=== PATIENT | female | born 1975 | race African-American/Black ===

== ENCOUNTER 2025-05-18 11:23 | Emergency (ER) | payer MEDICAID, SELFPAY ==
[2025-05-18] VITALS (12 sets, daily range): BP systolic 135–164; BP diastolic 70–89; PULSE 71–103; RESP 12–20; TEMP 36.6–36.8; O2SAT 96–100; BMI 38.0
--- NOTE | ~2025-05-18 | CT_ITS ---
CLINICAL HISTORY: weakness, dizziness CT head without contrast Comparison: None provided Findings: No intra-axial mass, midline shift, hydrocephalus, or acute hemorrhage. No significant atrophy-like change or white matter disease. There is no sinus or mastoid fluid. The orbits are unremarkable. No skull fracture. IMPRESSION: 1. No acute intracranial findings. This document has been electronically signed by: Maggy Yates MD on 05/18/2025 13:47:19
--- NOTE | 2025-05-18 11:33 | ED.GENADULT ---
HPI - General Adult General Chief complaint: Dizziness Stated complaint: dizzy, weak Time Seen by Provider: 05/18/25 11:27 Source: patient, RN notes reviewed and old records reviewed Mode of arrival: ambulatory Limitations: no limitations History of Present Illness ED Provider: BHAVNA Ibarra HPI narrative: 49-year-old female with medical history of asthma, HIV on ART, anemia presents to the ED due to episode of dizzy and weakness. Patient states she woke up, ate breakfast and then laid back down to take a nap before work when she closed her eyes and instantly felt dizzy as if the room was upside down . Patient states this episode lasted approximately 5-10 seconds and was associated with palpitations and nausea that lasted approximately 5 minutes after the episode of dizziness resolved. Patient states she has a history of vertigo, and this episode felt exactly like her prior episodes without any changes. Denies fevers, chills,chest pain, shortness of breath, vomiting, abdominal pain, headache, visual changes, urinary symptoms MD complaint: Dizzy, weakness Related Data Previous Rx's ?Medication ?Instructions ?Recorded meclizine 25 mg tablet 25 mg PO TID PRN dizziness #14 tabs 05/19/25 Allergies Allergy/AdvReac Type Severity Reaction Status Date / Time No Known Allergies (No Known Allergy Verified 05/19/25 12:12 Allergies*) Review of Systems Review of Systems: Yes all other systems are reviewed and are negative PMFSH Past Medical History Attestation statement: The following information was validated with the patient. Source: old records reviewed and nursing notes reviewed Physical Exam ED Vital Signs: Vital Signs - 24 hr 05/18/25 11:32 05/18/25 11:37 05/18/25 12:52 Temperature 98.2 F 98.2 F Pulse Rate 83 83 83 Respiratory Rate 14 14 13 Blood Pressure 147/81 H 147/81 H 137/72 Pulse Oximetry 100 100 100 Oxygen Delivery Method Room Air Room Air Room Air 05/18/25 12:58 05/18/25 14:40 05/18/25 15:03 Temperature 97.8 F 97.8 F Pulse Rate 103 H 85 71 Respiratory Rate 20 15 12 Blood Pressure 164/89 H 146/76 H 139/71 Pulse Oximetry 100 97 Oxygen Delivery Method Room Air Room Air 05/18/25 15:04 05/18/25 16:10 05/18/25 17:15 Temperature 97.8 F 97.8 F Pulse Rate 76 78 77 Respiratory Rate 12 17 19 Blood Pressure 139/75 143/85 H 143/85 H Pulse Oximetry 99 Oxygen Delivery Method Room Air 05/18/25 19:17 05/18/25 19:18 05/18/25 19:18 Temperature 98 F Pulse Rate 79 82 76 Respiratory Rate 16 Blood Pressure 145/74 H 135/89 137/70 Pulse Oximetry 99 Oxygen Delivery Method Room Air 05/18/25 19:18 Temperature Pulse Rate 82 Respiratory Rate Blood Pressure 135/89 Pulse Oximetry Oxygen Delivery Method BMI result Body Mass Index 38.0 GENERAL APPEARANCE: ?AxOx4, generally well-appearing, no acute distress. HEENT: ?NC, AT. MMM. EOMI, clear conjunctiva, Mild conjunctival pallor, oropharynx clear. NECK: ?Supple without lymphadenopathy.? No stiffness or restricted ROM. HEART:? Normal rate and regular rhythm, normal S1/S1, no m/r/g LUNGS:? CTAB, moving air well. No crackles or wheezes are heard. ABDOMEN: ?Soft, nontender, nondistended with good bowel sounds heard. BACK: No CVAT, no obvious deformity. EXTREMITIES: ?Without cyanosis, clubbing or edema. NEUROLOGICAL: ?Grossly nonfocal. Alert and oriented, moving all 4 extremities. Observed to ambulate with normal gait. Skin: ?Warm and dry without any rash. Medications Administered Discontinued Medications Generic Name Dose Route Start Last Admin Trade Name Freq PRN Reason Stop Dose Admin Diazepam 5 mg 05/18/25 12:58 05/18/25 13:06 Diazepam 10 Mg/2 Ml Cartridge IVPUSH 05/18/25 12:59 5 mg STAT STA Administration Lactated Ringer's 1,000 mls @ 999 mls/hr 05/18/25 11:46 05/18/25 14:28 Lr IV 05/18/25 12:46 Infused .Q1H1M ONE Infusion Meclizine HCl 25 mg 05/18/25 11:46 05/18/25 11:54 Meclizine Hcl 25 Mg Tablet PO 05/18/25 11:47 25 mg ONCE ONE Administration Medical Decision Making Medical Decision Making MDM Narrative: 49-year-old female with medical history of asthma, HIV on ART, anemia presents to the ED due to episode of dizzy and weakness that started this morning after she woke up that lasted approximately 5-10 seconds with nausea and palpitations that lasted 5 mins after dizziness had resolved. Plan: labs, EKG - Medicated with 1L IV fluids, 25mg PO meclizine EKG reveals normal sinus rhythm, with T-wave inversion in 3 and V1 however this is nonspecific, no ST-elevation /depression, lengthened QT troponins x2 undetectable at <2.7 Labs without leukocytosis / leukopenia no left shift, microcytic anemia with a hemoglobin of 7.9, hematocrit of 28.0, no electrolyte abnormalities, beta hCG negative. Viral serology negative CT head/ brain negative for acute intracranial findings Course 14:15- Patient has had 3 episodes of dizziness while in the department after being medicated with 1L IV fluids and 25mg meclizine. I obtained CT head/brain to ensure this was not the source of her anemia. Patient is symptomatic today with dizziness today I believe her anemia may be the source of her symptoms. Patient will be transfused with 1 unit of red blood cells to correct anemia. 19:48- Patient was transfused with 1 unit red blood cells and handled procedure well. Patient is now up and ambulating to the bathroom with dizziness resolved. No other episodes of dizziness while in the department. Orthostatic vital signs negative, patient asymptomatic, Patient has tolerated PO and symptoms have improved significantly. VS stable with BP 135/89, pulse rate of 82, respiratory rate of 16, afebrile with oral temp of 98?, O2 saturation 99% on room air. I counseled patient to follow up with her primary care doctor to ensure resolution of her symptoms and management of anemia. Patient feels well to go home for self care. Patient is in agreement with the plan. Differential Diagnosis Differential Diagnoses: The differential diagnosis associated with the presentation includes ICH ACS Dysrhythmia Electrolyte abnormality Anemia Admission/Observation Consideration of admission/observation: Escalation of care including admission/observation considered Lab Data MDM Lab Attestation statement: I reviewed the patient's lab results. 05/18/25 11:59 05/18/25 11:59 Labs: Lab Results 05/18/25 05/18/25 05/18/25 Range/Units 11:59 13:01 13:12 WBC 9.4 (4.8-10.8) X10*3/uL RBC 4.75 (4.20-5.50) X10*6/uL Hgb 7.9 L (12.0-16.0) g/dl Hct 28.0 L (37.0-47.0) % MCV 58.9 L (80.0-98.0) fL MCH 16.6 L (27.0-33.0) pg MCHC 28.2 L (31.0-35.0) g/dl RDW 18.8 H (11.0-16.0) % Plt Count 387 (160-400) X10*3/uL MPV 9.7 (9.4-12.3) fL Immature Gran % (Auto) 0.4 (0.0-0.4) % Neut % (Auto) 58.8 (45-73) % Lymph % (Auto) 27.7 (20-40) % [place] % (Auto) 6.0 (2-11) % Eos % (Auto) 6.4 H (0-4) % Baso % (Auto) 0.7 (0-2) % Lymph # (Auto) 2.6 (1.2-4.9) X10*3/uL [place] # (Auto) 0.6 (0.1-1.2) X10*3/uL Eos # (Auto) 0.6 H (0.0-0.4) X10*3/uL Baso # (Auto) 0.1 (0.0-0.2) X10*3/uL Abs Immat Gran (auto) 0.04 H (0.00-0.03) X10*3/uL Absolute Neuts (auto) 5.5 (2.0-8.3) x10*3/uL Absolute Nucleated RBC 0.000 (0.0-0.012) X10*3/uL Nucleated RBC % (auto) 0.0 (0.0-0.2) /100WBC Smear Tech's Comments VERIFIED Smear Path Review SEE NOTE Sodium 139 (135-145) mmol/L Potassium 3.8 (3.3-5.1) mmol/L Chloride 110 H (96-108) mmol/L Carbon Dioxide 21 L (22-29) mmol/L Anion Gap 12 (12-20) BUN 15 (9-16) mg/dL Creatinine 0.88 (0.5-1.4) mg/dL Estim Creat Clear Calc 91.0 Estimated GFR > 60 Random Glucose 100 (60-115) mg/dL Calcium 9.1 (8.4-10.2) mg/dL Magnesium 1.9 (1.6-2.6) mg/dL Total Bilirubin 0.3 (0.0-1.0) mg/dL AST 16 (5-31) U/L ALT 15 (0-31) U/L Alkaline Phosphatase 61 (39-117) U/L Troponin I High Sens < 2.7 (<3.5-17.0) ng/L Total Protein 7.9 (6.5-8.0) g/dL Albumin 4.4 (3.5-5.0) g/dL Beta HCG, Quant < 2 mIU/mL Influenza Type A (PCR) NEGATIVE (Negative) Influenza Type B (PCR) NEGATIVE (Negative) RSV RNA Qual (PCR) NEGATIVE (Negative) SARS-CoV-2 RNA (RT-PCR) NEGATIVE (Negative) Blood Type B Positive Antibody Screen NEGATIVE Crossmatch See Detail 05/18/25 Range/Units 13:56 WBC (4.8-10.8) X10*3/uL RBC (4.20-5.50) X10*6/uL Hgb (12.0-16.0) g/dl Hct (37.0-47.0) % MCV (80.0-98.0) fL MCH (27.0-33.0) pg MCHC (31.0-35.0) g/dl RDW (11.0-16.0) % Plt Count (160-400) X10*3/uL MPV (9.4-12.3) fL Immature Gran % (Auto) (0.0-0.4) % Neut % (Auto) (45-73) % Lymph % (Auto) (20-40) % [place] % (Auto) (2-11) % Eos % (Auto) (0-4) % Baso % (Auto) (0-2) % Lymph # (Auto) (1.2-4.9) X10*3/uL [place] # (Auto) (0.1-1.2) X10*3/uL Eos # (Auto) (0.0-0.4) X10*3/uL Baso # (Auto) (0.0-0.2) X10*3/uL Abs Immat Gran (auto) (0.00-0.03) X10*3/uL Absolute Neuts (auto) (2.0-8.3) x10*3/uL Absolute Nucleated RBC (0.0-0.012) X10*3/uL Nucleated RBC % (auto) (0.0-0.2) /100WBC Smear Tech's Comments Smear Path Review Sodium (135-145) mmol/L Potassium (3.3-5.1) mmol/L Chloride (96-108) mmol/L Carbon Dioxide (22-29) mmol/L Anion Gap (12-20) BUN (9-16) mg/dL Creatinine (0.5-1.4) mg/dL Estim Creat Clear Calc Estimated GFR Random Glucose (60-115) mg/dL Calcium (8.4-10.2) mg/dL Magnesium (1.6-2.6) mg/dL Total Bilirubin (0.0-1.0) mg/dL AST (5-31) U/L ALT (0-31) U/L Alkaline Phosphatase (39-117) U/L Troponin I High Sens < 2.7 (<3.5-17.0) ng/L Total Protein (6.5-8.0) g/dL Albumin (3.5-5.0) g/dL Beta HCG, Quant mIU/mL Influenza Type A (PCR) (Negative) Influenza Type B (PCR) (Negative) RSV RNA Qual (PCR) (Negative) SARS-CoV-2 RNA (RT-PCR) (Negative) Blood Type Antibody Screen Crossmatch Independent Interpretation I performed an independent interpretation of an: EKG and CT Scan Interpretation: I personally interpreted the EKG which reveals normal sinus rhythm with T-wave inversions in leads 3 and V1 however this is nonspecific, no ST-elevation / depression, lengthened QT Vent. Rate : 76 BPM Atrial Rate : 76 BPM P-R Int : 124 ms QRS Dur : 84 ms QT Int : 384 ms P-R-T Axes : -1 20 10 degrees QTcB Int : 432 ms Normal sinus rhythm Nonspecific T wave abnormality Abnormal ECG No previous ECGs available I personally interpreted the CT head / brain which was negative for acute intracranial abnormalities, I agree with the radiologist's interpretation Radiology Impression Discussion of test interpretation with radiology: I have reviewed the radiologist's reading. Radiologist Impression: CT head/brain Findings: No intra-axial mass, midline shift, hydrocephalus, or acute hemorrhage. No significant atrophy-like change or white matter disease. There is no sinus or mastoid fluid. The orbits are unremarkable. No skull fracture. IMPRESSION: 1. No acute intracranial findings. This document has been electronically signed by: Maggy Yates MD on 05/18/2025 13:47:19 Dictated By: Maggy Yates MD Signed By: <Electronically signed by Maggy Yates MD in OV> 05/18/25 [id number] External Record Review External record reviewed: Inpatient record, Office record and Outpatient record Chronic Conditions Patient?s care impacted by: Other (HIV on ART, anemia, asthma ) Discharge Plan Discharge Clinical Impression: Anemia Patient Disposition: Home, Self-Care Instructions: Anemia (ED) Additional Instructions: You were evaluated in the emergency department for dizziness. Your lab work showed a significant anemia with a hemoglobin of 7.9. You were given 1 unit of red blood cells while in the department and tolerated the procedure well. The CT of your head/brain was normal. Please follow up with your primary care doctor to ensure resolution of your symptoms, and management of your anemia. Please return to the emergency department if you experience fevers over 100.4?, chest pain, shortness of breath, nausea, vomiting, abdominal pain, increased dizziness, headaches, visual changes or any new/worsening/concerning symptoms. Prescriptions: No Action meclizine 25 mg tablet 25 mg PO TID PRN (Reason: dizziness) Qty: 14 0RF Stand Alone Forms: Work/School Release Interventions: ED Discharge Assessment Last Done: 05/18/25 20:07 Discharge Date/Time: 05/18/25 20:13 Print Language: Azeri
--- NOTE | 2025-05-18 11:45 | ECG_ITS ---
Test Reason : DIZINESS Blood Pressure : */* mmHG Vent. Rate : 76 BPM Atrial Rate : 76 BPM P-R Int : 124 ms QRS Dur : 84 ms QT Int : 384 ms P-R-T Axes : -1 20 10 degrees QTcB Int : 432 ms Normal sinus rhythm Nonspecific T wave abnormality Abnormal ECG No previous ECGs available Referred By: Madeline Ibarra Electronically Signed By: HENRY GIBBS
[2025-05-18] MEDS: Lactated Ringers 1,000 ML 999 ML IV (11:54)
--- OUTSIDE RECORDS SUMMARY | 2025-05-18 11:54 | XMS_ITS | Clinical Summary ---
Author Organization [facility] Address [address] [place] [address] Care Team Providers Care French Weaver Name Role Phone Unknown Primary Care Provider [phone] Allergies No known active allergies Social History Tobacco Use Types Packs/Day Years Used Date Smoking Tobacco: Never Assessed Comments Unknown Sex and Gender Information Value Date Recorded Sex Assigned at Not on file Legal Sex Female 7:27 AM EST Gender Identity Not on file Sexual Orientation Not on file Last Filed Vital Signs Vital Sign Reading Time Taken Comments Blood Pressure 133/79 08/26/2019 9:14 AM EST Pulse 90 08/26/2019 9:14 AM EST Temperature 36.7 C (98.1 F) 08/26/2019 7:32 AM EST Respiratory Rate 18 08/26/2019 9:14 AM EST Oxygen Saturation 98% 08/26/2019 9:14 AM EST Inhaled Oxygen Concentration - - Weight - - Height - - Body Mass Index - - Plan of Treatment Health Maintenance Due Date Last Done Comments Hepatitis C Virus Screening 1977 HIV Screening 1990 DTaP/Tdap/Td Vaccines (1 - Tdap) 1996 Hepatitis B Vaccines (1 of 3 - 19+ 3-dose series) 1996 Pap Smear (Ages 21-65) 1998 Mammogram 2017 Colonoscopy 2022 Influenza Vaccine 01/25/2025 COVID-19 Vaccine ( - 2023-2 5 season) 2025 Pneumococcal Vaccine: Pediat jane (0-5 Years) and At-Risk Patients (6 to 49 Years) Aged Out No longer eligible b ased on patient's age to complete this topic Insurance [address] [place] [id number] [facility] [place] [employer] (AUTO/LIABILITY) [place] [address] Care Teams French Weaver Relationship Specialty Start Date End Date Unknown Unknow Provider Address PCP - General 08/26/19
[2025-05-18 12:12] LABS: Hematocrit 28.0 % (37.0-47.0); Hemoglobin 7.9 g/dl (12.0-16.0); Imm Gran Abs Auto 0.04 X10*3/uL (0.00-0.03); Imm Gran Pct Auto 0.4 % (0.0-0.4); Lymphocytes Absolute Auto 2.6 X10*3/uL (1.2-4.9); MANUAL DIFF FLAG SCAN; Mean Corpuscular HGB Conc 28.2 g/dl (31.0-35.0); Mean Corpuscular Hemoglobin 16.6 pg (27.0-33.0); Mean Corpuscular Volume 58.9 fL (80.0-98.0); NRBC Abs Auto 0.000 X10*3/uL (0.0-0.012); NRBC Pct Auto 0.0 /100WBC (0.0-0.2); PLT ABN DIST 1; Red Blood Count 4.75 X10*6/uL (4.20-5.50); SCAN SMEAR FLAG 1
[2025-05-18 12:13] LABS: White Blood Count 9.4 X10*3/uL (4.8-10.8)
[2025-05-18 12:20] LABS: Alanine Aminotransferase 15 U/L (0-31); Albumin Level 4.4 g/dL (3.5-5.0); Alkaline Phosphatase 61 U/L (39-117); Anion Gap 12 (12-20); Aspartate Amino Transferase 16 U/L (5-31); Blood Urea Nitrogen 15 mg/dL (9-16); Calcium 9.1 mg/dL (8.4-10.2); Carbon Dioxide 21 mmol/L (22-29); Chloride 110 mmol/L (96-108); Creatinine Clr Calc Pharmacy 91.0; Estimated Glomerular Filt Rate > 60; Magnesium 1.9 mg/dL (1.6-2.6); Potassium 3.8 mmol/L (3.3-5.1); Sodium 139 mmol/L (135-145); Total Protein 7.9 g/dL (6.5-8.0)
[2025-05-18 12:27] LABS: Platelet Count 387 X10*3/uL (160-400)
[2025-05-18] MEDS: diazePAM 10 MG/2 ML CARTRIDGE 5 MG IVPUSH (13:06)
[2025-05-18 13:40] LABS: Troponin-I High Sensitivity < 2.7 ng/L (<3.5-17.0)
[2025-05-18 13:47] LABS: Resp Syncy Virus RNA Qual PCR NEGATIVE (Negative); SARS COV2 PCR INHOUSE NEGATIVE (Negative)
[2025-05-18 14:22] LABS: Troponin-I High Sensitivity < 2.7 ng/L (<3.5-17.0)
--- NOTE | 2025-05-18 17:11 | PC.NURSE ---
Patient present c/o of dizziness Patient went to take a nap and when laying down felt the room spinning Patient had hx of this 1 year prior Patient was found to be anemic IV 20 G in R forearm Administered 1 pack RBC with no reactions Head CT = no acute findings VSS and up to date
== END 2025-05-18 20:13 | disposition home or self-care (01) ==
PROVIDERS: Emergency Provider Emergency Medicine Emergency Medical Services; PCP Internal Medicine
DX: D64.9 Anemia, unspecified (principal); Z21 Asymptomatic human immunodeficiency virus [HIV] infection status; Z79.899 Other long term (current) drug therapy
CPT/HCPCS: 36415; 36430; 70450; 80053; 83735; 84484; 84702; 85025; 86850; 86900; 86901; 86923; 87637; 93005; 96361; 96374; 99285; J3360; J7120; P9016

== ENCOUNTER → 2025-05-18 11:45 | Outpatient (BNV) | payer MEDICAID, SELFPAY | PROVIDERS: Emergency Provider Emergency Medicine Emergency Medical Services; PCP Internal Medicine; Visit Provider Internal Medicine | DX: R94.31 Abnormal electrocardiogram [ECG] [EKG] (principal); R42 Dizziness and giddiness | CPT/HCPCS: 93010 ==

== ENCOUNTER → 2025-05-18 12:49 | Outpatient (BNV) | payer MEDICAID, SELFPAY | PROVIDERS: Emergency Provider Emergency Medicine Emergency Medical Services; PCP Internal Medicine; Visit Provider Radiology Diagnostic Radiology | DX: R42 Dizziness and giddiness (principal); R53.1 Weakness | CPT/HCPCS: 70450 ==

== ENCOUNTER 2025-05-19 12:06 | Emergency (ER) | payer MEDICAID, SELFPAY ==
--- NOTE | ~2025-05-19 | XR_ITS ---
CLINICAL HISTORY: cough Single view of the chest. COMPARISON: None provided. FINDINGS: Borderline cardiomegaly. No consolidation. Gradient opacities along the lung bases likely representing overlying adipose/breast tissue. No pleural effusion or pneumothorax. No acute fracture. IMPRESSION: 1. No consolidation. This document has been electronically signed by: Uriel Kaba MD on 05/19/2025 16:03:50
[2025-05-19 12:12] VITALS: BP 153/90; PULSE 77; RESP 16; TEMP 36.1; O2SAT 97; BMI 38.6
--- NOTE | 2025-05-19 12:13 | ED_ITS ---
HPI - General Adult General Chief complaint: Dizziness Stated complaint: Dizziness Time Seen by Provider: 05/19/25 14:32 Source: patient, RN notes reviewed and old records reviewed Mode of arrival: ambulatory History of Present Illness ED Provider: Katalina Alvarez PA-C HPI narrative: 49-year-old female with a past medical history of asthma, HIV on HAART, anemia, presenting to the ED complaining of intermittent room spinning dizziness elicited with position changes since this morning. Reports symptomatic improvement at present, denies dizziness now. Also reports mild headache and cough with chronic SOB. Patient was evaluated in our ED yesterday for similar symptoms of dizziness and anemia, was transfused 1 unit RBCs. States she is not discharged home on any medication. Reports history of vertigo a few years ago. Denies vision change/loss, nausea / vomiting, CP, focal weakness. Related Data Previous Rx's ?Medication ?Instructions ?Recorded meclizine 25 mg tablet 25 mg PO TID PRN dizziness # 14 tabs 05/19/25 Allergies Allergy/AdvReac Type Severity Reaction Status Date / Time No Known Allergies (No Known Allergy Verified 05/19/25 12:12 Allergies*) Review of Systems 2 Review of Systems: Yes all other systems are reviewed and are negative Constitutional: Constitutional: Reports as per HPI Neurologic: Denies Abnormal speech present [facility] Past Medical History Attestation statement: The following information was validated with the patient. Source: old records reviewed Physical Exam ED Vital Signs: Vital Signs - 24 hr 05/19/25 12:12 05/19/25 15:09 05/19/25 16:34 Temperature 96.9 F 98.3 F Pulse Rate 77 77 76 Respiratory Rate 16 16 16 Blood Pressure 153/90 H 152/91 H Pulse Oximetry 97 98 Oxygen Delivery Method Room Air Room Air 05/19/25 18:11 Temperature 98.4 F Pulse Rate 82 Respiratory Rate 18 Blood Pressure 137/78 Pulse Oximetry 98 Oxygen Delivery Method Room Air BMI result Body Mass Index 38.6 Const General: cooperative, healthy appearing, no acute distress, alert and awake Orientation/consciousness: patient oriented x3 Limitations: no limitations HENMT Head: Yes normal to inspection and Yes atraumatic Ears: hearing grossly normal bilaterally General nose exam: Normal external nose present Face and sinus: Yes normal facial exam Mouth: Normal oral and palatal mucosa present Throat: Yes posterior oropharynx normal Eyes General: appearance normal, both eyes and all related structures Pupils: Equal, round and reactive pupils present EOM: EOMs intact bilaterally and Nystagmus present Neck Neck: Yes normal visual inspection and Yes no meningeal signs Resp Effort & Inspection: normal respiratory effort and no respiratory distress Auscultation: wheezes expiratory wheezes and throughout Cardio Rate: regular rate Heart sounds: S1 normal heart sound present and S2 normal heart sound present Skin Rashes: no rashes Wounds: no wounds Neuro General: patient oriented x3, tone normal, moves all extremities, no meningeal signs, no focal motor deficits and CN's II-XI intact bilaterally Cranial nerves: Yes CN's II-XII intact bilaterally, Yes Equal, round and reactive pupils present, Yes Bilaterally intact EOM present and Yes Nystagmus present horizontal fast component to the left Cognition (Neuro): normal cognition Speech: No Abnormal speech present Gait exam (Neuro): Normal gait present Motor exam (neuro): 5/5 motor strength present throughout and no tremor noted Extrem General: Yes normal to inspection Course Course Course Narrative: Rapid medical examination performed in triage by Luba Harry PA-C: Patient is a 49 year old assigned female at presenting to the emergency department with dizziness / lightheadedness. Detailed physical exam and review of systems are deferred to the eap clinician. EKG, labs ordered. Patient placed back in the waiting room pending room availability and results. - anemic 8.7/30.9 improved from yesterday, was transfused 1 unit RBCs yesterday - labs otherwise reassuring -1640--during orthostatic vitals patient became dizzy with position changes. Will trial PO Ativan XR chest 1V IMPRESSION: 1. No consolidation. -1834--on re-evaluation patient was sleeping comfortably. Now she is awake and alert. Ambulating with steady gait. Reports symptomatic improvement. Denies dizziness at present. Lungs CTA. Feels safe for discharge home at this time Results discussed with patient including worrisome signs and symptoms and strict return precautions, and when to return to the emergency department. They verbalized understanding and feel safe for discharge at this time. Medications Administered Discontinued Medications Generic Name Dose Route Start Last Admin Trade Name Freq PRN Reason Stop Dose Admin Albuterol Sulfate 2.5 mg/ 0 mg 05/19/25 15:02 05/19/25 15:08 Albuterol/Ipratropium 3 ml INHALE 05/19/25 15:03 1 dose ONCE ONE Administration Diphenhydramine HCl 12.5 mg 05/19/25 14:53 05/19/25 15:10 Diphenhydramine Hcl 50 Mg/Ml Vial IVPUSH 05/19/25 14:54 12.5 mg ONCE ONE Administration Sodium Chloride 1,000 mls @ 999 mls/hr 05/19/25 15:00 05/19/25 16:49 Ns IV 05/19/25 16:00 Infused .Q1H1M REDDY Infusion Lorazepam 1 mg 05/19/25 16:35 05/19/25 16:46 Lorazepam 1 Mg Tablet PO 05/19/25 16:36 1 mg ONCE ONE Administration Meclizine HCl 25 mg 05/19/25 14:53 05/19/25 15:07 Meclizine Hcl 25 Mg Tablet PO 05/19/25 14:54 25 mg ONCE ONE Administration Medical Decision Making Medical Decision Making MDM Narrative: 49-year-old female with a past medical history of asthma, HIV on HAART, anemia, presenting to the ED complaining of intermittent room spinning dizziness elicited with position changes since this morning. On exam vital signs stable, NAD, nontoxic appearing, denies dizziness at present, diffuse expiratory wheeze noted. No focal deficits. Concern for BPPV. Rule out anemia. Lower suspicion for ICH, CVT, meningitis/ encephalitis. Concern for viral illness vs asthma exacerbation. Rule out pneumonia. Labs and imaging reviewed from yesterday Plan: Repeat labs, symptomatic treatment, CXR, ED bronch protocol Please refer to course for remaining clinical decision making, interpretation of labs/imaging results, and discussions with consultants and/or family members. Differential Diagnosis Differential Diagnoses: The differential diagnosis associated with the presentation includes As above Admission/Observation Consideration of admission/observation: Escalation of care including admission/observation considered Lab Data [facility] Lab Attestation statement: I reviewed the patient's lab results. 05/19/25 12:30 05/19/25 12:30 Labs: Lab Results 05/19/25 Range/Units 12:30 WBC 8.2 (4.8-10.8) X10*3/uL RBC 4.94 (4.20-5.50) X10*6/uL Hgb 8.7 L (12.0-16.0) g/dl Hct 30.9 L (37.0-47.0) % MCV 62.6 L (80.0-98.0) fL MCH 17.6 L (27.0-33.0) pg MCHC 28.2 L (31.0-35.0) g/dl RDW 21.8 H (11.0-16.0) % Plt Count 343 (160-400) X10*3/uL MPV 9.5 (9.4-12.3) fL Immature Gran % (Auto) 0.4 (0.0-0.4) % Neut % (Auto) 55.3 (45-73) % Lymph % (Auto) 31.6 (20-40) % Tama % (Auto) 5.4 (2-11) % Eos % (Auto) 6.7 H (0-4) % Baso % (Auto) 0.6 (0-2) % Lymph # (Auto) 2.6 (1.2-4.9) X10*3/uL Tama # (Auto) 0.4 (0.1-1.2) X10*3/uL Eos # (Auto) 0.6 H (0.0-0.4) X10*3/uL Baso # (Auto) 0.1 (0.0-0.2) X10*3/uL Abs Immat Gran (auto) 0.03 (0.00-0.03) X10*3/uL Absolute Neuts (auto) 4.5 (2.0-8.3) x10*3/uL Absolute Nucleated RBC 0.000 (0.0-0.012) X10*3/uL Nucleated RBC % (auto) 0.0 (0.0-0.2) /100WBC PT 11.9 (11.2-13.5) SEC INR 1.0 (0.9-1.1) Sodium 140 (135-145) mmol/L Potassium 3.8 (3.3-5.1) mmol/L Chloride 112 H (96-108) mmol/L Carbon Dioxide 20 L (22-29) mmol/L Anion Gap 12 (12-20) BUN 15 (9-16) mg/dL Creatinine 0.98 (0.5-1.4) mg/dL Estim Creat Clear Calc 82.5 Estimated GFR > 60 Random Glucose 115 (60-115) mg/dL Calcium 8.8 (8.4-10.2) mg/dL Magnesium 1.9 (1.6-2.6) mg/dL Total Bilirubin 0.2 (0.0-1.0) mg/dL AST 11 (5-31) U/L ALT 11 (0-31) U/L Alkaline Phosphatase 59 (39-117) U/L Troponin I High Sens < 2.7 (<3.5-17.0) ng/L Total Protein 7.6 (6.5-8.0) g/dL Albumin 4.1 (3.5-5.0) g/dL Independent Interpretation I performed an independent interpretation of an: Plain X-Ray Radiology Impression Discussion of test interpretation with radiology: I have reviewed the radiologist's reading. Independent Historian Clinical information obtained from an independent historian. History obtained from or confirmed by: Other External Record Review External record reviewed: Inpatient record, Office record, Outpatient record, Prior outpatient labs, Prior outpatient radiology, Primary care record and Outside ED record Tests considered The following testing was considered but not selected: As above Prescription Management I considered prescription management with: Pain Medication and Other Chronic Conditions Patient?s care impacted by: Other Social Determinants Patient?s care significantly limited by Social Determinants of Health including: Other Social Determinant of Health Discharge Plan Discharge Clinical Impression: Dizziness Patient Disposition: Home, Self-Care Instructions: Dizziness (ED) Additional Instructions: You are mildly anemic however improved from yesterday Your x-ray does not show pneumonia Meclizine will help with dizziness, take as needed Make sure you are staying hydrated, change positions slowly Have close follow up with your primary care doctor If her symptoms persist or worsen, dizziness becomes more constant, you have headache, chest pain, weakness return to the emergency department Please follow up with physical therapy as well Prescriptions: New meclizine 25 mg tablet 25 mg PO TID PRN (Reason: dizziness) Qty: 14 0RF Referrals: Physical Therapy - [facility] [Outside] - 3 days Ai Craft MD [Primary Care Provider, Internal Medicine] - 5 days Discharge Date/Time: 05/19/25 18:42 Print Language: Latvian
--- NOTE | 2025-05-19 12:14 | ECG_ITS ---
Test Reason : DIZZINESS Blood Pressure : */* mmHG Vent. Rate : 73 BPM Atrial Rate : 73 BPM P-R Int : 114 ms QRS Dur : 84 ms QT Int : 388 ms P-R-T Axes : 2 20 -7 degrees QTcB Int : 427 ms Normal sinus rhythm Nonspecific T wave abnormality Abnormal ECG When compared with ECG of 18-May-2025 11:52, No significant change was found Referred By: Luba Harry Electronically Signed By: Steve Cruz
--- OUTSIDE RECORDS SUMMARY | 2025-05-19 12:33 | XMS_ITS | Clinical Summary ---
Author Organization [facility] Address [address] [place] [address] Care Team Providers Care Surfacer Name Role Phone Unknown Primary Care Provider [phone] Allergies No known active allergies Social History [...] age to complete this topic Insurance [address] [place] [id number] [facility] [place]) [place] [address] Care Teams Surfacer Relationship Specialty Start Date End Date Unknown Unknow Provider Address PCP - General 08/26/19
[2025-05-19 12:39] LABS: MANUAL DIFF FLAG NO
[2025-05-19 12:49] LABS: Hematocrit 30.9 % (37.0-47.0); Hemoglobin 8.7 g/dl (12.0-16.0); Imm Gran Abs Auto 0.03 X10*3/uL (0.00-0.03); Imm Gran Pct Auto 0.4 % (0.0-0.4); Lymphocytes Absolute Auto 2.6 X10*3/uL (1.2-4.9); Mean Corpuscular HGB Conc 28.2 g/dl (31.0-35.0); Mean Corpuscular Hemoglobin 17.6 pg (27.0-33.0); NRBC Abs Auto 0.000 X10*3/uL (0.0-0.012); NRBC Pct Auto 0.0 /100WBC (0.0-0.2); Platelet Count 343 X10*3/uL (160-400); Red Blood Count 4.94 X10*6/uL (4.20-5.50); White Blood Count 8.2 X10*3/uL (4.8-10.8)
[2025-05-19 12:50] LABS: INTERNATIONAL NORM RATIO 1.0 (0.9-1.1); Mean Corpuscular Volume 62.6 fL (80.0-98.0); Prothrombin Time 11.9 SEC (11.2-13.5)
[2025-05-19 12:53] LABS: Alanine Aminotransferase 11 U/L (0-31); Albumin Level 4.1 g/dL (3.5-5.0); Alkaline Phosphatase 59 U/L (39-117); Anion Gap 12 (12-20); Aspartate Amino Transferase 11 U/L (5-31); Blood Urea Nitrogen 15 mg/dL (9-16); Calcium 8.8 mg/dL (8.4-10.2); Carbon Dioxide 20 mmol/L (22-29); Chloride 112 mmol/L (96-108); Creatinine Clr Calc Pharmacy 82.5; Estimated Glomerular Filt Rate > 60; Magnesium 1.9 mg/dL (1.6-2.6); Potassium 3.8 mmol/L (3.3-5.1); Sodium 140 mmol/L (135-145); Total Protein 7.6 g/dL (6.5-8.0)
[2025-05-19 13:11] LABS: Troponin-I High Sensitivity < 2.7 ng/L (<3.5-17.0)
--- NOTE | 2025-05-19 14:48 | PC.NURSE ---
Patient presents to ED with dizziness. Patient was here yesterday with hemoglobin of 7.9. Today hemoglobin is 8.4, patient states normal level is around 10 due to anemia. Patient denies any blood in stool. VSS.
[2025-05-19] MEDS: Albuterol Sulfate 2.5 MG, Albuterol/Iprat 2.5/0.5MG 3 ML 3 ML INHALE (15:08)
[2025-05-19 15:09] VITALS: PULSE 77; RESP 16; O2SAT 97
[2025-05-19 16:34] VITALS: BP 152/91; PULSE 76; RESP 16; TEMP 36.8; O2SAT 98
[2025-05-19 18:11] VITALS: BP 137/78; PULSE 82; RESP 18; TEMP 36.9; O2SAT 98
== END 2025-05-19 18:42 | disposition home or self-care (01) ==
PROVIDERS: Physician Assistant Medical; Emergency Provider Emergency Medicine Emergency Medical Services; PCP Internal Medicine
DX: R42 Dizziness and giddiness (principal); D64.9 Anemia, unspecified; J45.909 Unspecified asthma, uncomplicated; Z21 Asymptomatic human immunodeficiency virus [HIV] infection status; Z79.899 Other long term (current) drug therapy
CPT/HCPCS: 36415; 71045; 80053; 83735; 84484; 85025; 85610; 93005; 94640; 96361; 96374; 99284; 99285; J1200

== ENCOUNTER → 2025-05-19 12:14 | Outpatient (BNV) | payer MEDICAID, SELFPAY | PROVIDERS: Emergency Provider Emergency Medicine Emergency Medical Services; PCP Internal Medicine; Visit Provider Internal Medicine Cardiovascular Disease | DX: R94.31 Abnormal electrocardiogram [ECG] [EKG] (principal); R42 Dizziness and giddiness | CPT/HCPCS: 93010 ==

== ENCOUNTER → 2025-05-19 14:53 | Outpatient (BNV) | payer MEDICAID, SELFPAY | PROVIDERS: Emergency Provider Emergency Medicine Emergency Medical Services; PCP Internal Medicine; Visit Provider Radiology Diagnostic Radiology | DX: R05.9 Cough, unspecified (principal) | CPT/HCPCS: 71045 ==